=== PATIENT | male | born 1940 | race Caucasian/White ===

== ENCOUNTER 2023-01-18 01:06 | Emergency (ER) | payer MEDICARE, BC, SELFPAY ==
[2023-01-18 01:17] VITALS: BP 206/102; PULSE 70; RESP 18; TEMP 36.8; O2SAT 99; BMI 21.9
--- NOTE | 2023-01-18 01:26 | ED_ITS ---
HPI - GI Bleed General: Chief complaint: GI Bleed Stated complaint: rectal bleeding Time Seen by Provider: 01/18/23 01:07 Source: patient Mode of arrival: ambulatory Limitations: no limitations History of Present Illness: 82-year-old male states he has a history of hemorrhoids states that over the last day he has been having bright red blood in his stools. He had seen his primary care doctor today had blood work and they are getting set up with Dr. Gr for likely colonoscopy he states that this evening went to the bathroom he had had 1 of a bloody bowel movement with bright red blood in the stool denies any clots he has no weakness no lightheadedness Associated symptoms: Denies abdominal pain, chills, fever(s), headache(s), nausea, rash or vomiting Review of Systems Const: Denies: fever(s), chills, body aches or change in appetite ENMT: Denies: throat pain or dental pain Card: Denies: chest pain Resp: Denies: dyspnea GI: Reports: hematochezia; Denies: abdominal pain, nausea, vomiting or diarrhea Musc: Denies: neck pain or back pain Skin/Breast: Denies: rash Neuro: Denies: headache(s) Physical Exam Const: COMMON NORMALS: no acute distress, patient oriented x3 and healthy appearing HENMT: COMMON NORMALS: normocephalic and atraumatic HEAD & SCALP: normocephalic and atraumatic Eye: COMMON NORMALS: conjunctivae normal CONJUNCTIVA: Yes conjunctivae normal Neck/C-Spine: COMMON NORMALS: full ROM and supple Chest: COMMONS NORMALS: normal inspection of the chest Resp: COMMON NORMALS: normal respiratory effort and No use of accessory muscles Cardio: COMMON NORMALS: regular rate, regular rhythm and No murmurs present (Cardio) RATE: regular rate RHYTHM: regular rhythm GI: COMMON NORMALS: Normal to inspection, nondistended, normoactive bowel sounds present, Soft to palpation, non-tender and no masses PALPATION: Yes Soft to palpation OTHER: Rectal exam does show a hemorrhoid he has no blood at this time Hemoccult is negative Extremity: COMMON NORMALS: normal to inspection and full ROM Neuro: COMMON NORMALS: patient oriented x3, moves all extremities and no focal motor deficits Psych: COMMON NORMALS: mental status grossly normal, Normal thought process present and cooperative THOUGHT PROCESS: Normal thought process present Skin: COMMON NORMALS: no rashes or lesions noted and no wounds GENERAL SKIN EXAM: no rashes or lesions noted Course Vital Signs: Vital signs: Vital Signs Temperature 98.3 F 01/18/23 01:17 Pulse Rate 70 01/18/23 01:17 Respiratory Rate 18 01/18/23 01:17 Blood Pressure 206/102 01/18/23 01:17 Pulse Oximetry 99 01/18/23 01:17 Oxygen Delivery Me thod Room Air 01/18/23 01:17 MDM - GI Bleed Medical Decision Making Patient presents here with lower GI bleed rectal exam here currently showed no bleeding his hemoglobin is normal he has no signs of large amount of bleeding and is stable for discharge she is to follow-up with Dr. Gr is his primary is recommended for likely colonoscopy return if worsening. Lab Data 01/18/23 01:28 01/18/23 01:28 Laboratory Results WBC 7.54 10^3/uL (3.29-11.43) 01/18/23 01:28 RBC 4.59 10^6/uL (3.85-5.65) 01/18/23 01:28 Hgb 14.30 g/dL (11.27-16.99) 01/18/23 01:28 Hct 44.4 % (37-53) 01/18/23 01:28 MCV 96.7 fl (82-101) 01/18/23 01:28 MCH 31.2 pg (27-33) 01/18/23 01:28 MCHC 32.2 g/dL (30-55) 01/18/23 01:28 RDW 12.6 % (12.1-15.1) 01/18/23 01:28 Plt Count 134 10^3/cmm (157-399) L 01/18/23 01:28 MPV 11.3 fL (7.4-10.4) H 01/18/23 01:28 Neut % (Auto) 55.4 % 01/18/23 01:28 Lymph % (Auto) 30.2 % 01/18/23 01:28 [place] % (Auto) 12.6 % 01/18/23 01:28 Eos % (Auto) 0.8 % 01/18/23 01:28 Baso % (Auto) 0.7 % 01/18/23 01:28 Neut # (Auto) 4.18 10^3/uL (1.8-7.7) 01/18/23 01:28 Lymph # (Auto) 2.3 10^3/uL (0.8-4.8) 01/18/23 01:28 [place] # (Auto) 1.0 10^3/uL (0.2-0.9) H 01/18/23 01:28 Eos # (Auto) 0.1 10^3/uL (0.0-0.8) 01/18/23 01:28 Baso # (Auto) 0.1 10^3/uL (0.0-0.1) 01/18/23 01:28 Nucleated RBC % (auto) 0 % 01/18/23 01:28 Nucleated RBCs # 0.0 /100WBC 01/18/23 01:28 PT 13.80 SECONDS (12.1-14.9) 01/18/23 01:28 INR 1.03 (0.8-1.2) 01/18/23 01:28 Sodium 138 mmol/L (136-145) 01/18/23 01:28 Potassium 4.0 mmol/L (3.5-5.1) 01/18/23 01:28 Chloride 102 mmol/L (98-107) 01/18/23 01:28 Carbon Dioxide 27 mmol/L (22-29) 01/18/23 01:28 Anion Gap 13.0 (5-19) 01/18/23 01:28 BUN 18 mg/dL (8-23) 01/18/23 01:28 Creatinine 0.9 mg/dL (0.7-1.2) 01/18/23 01:28 GFR Calculation Not Reportable 01/18/23 01:28 Glucose 100 mg/dL (65-115) 01/18/23 01:28 Calculated Osmolality 288 mOsm/kg (285-295) 01/18/23 01:28 Calcium 9.3 mg/dL (8.5-10.5) 01/18/23 01:28 Total Bilirubin 0.4 mg/dL (0.15-1.2) 01/18/23 01:28 AST 25 U/L (0-40) 01/18/23 01:28 ALT 17 U/L (0-41) 01/18/23 01:28 Alkaline Phosphatase 123 U/L (40-130) 01/18/23 01:28 Total Protein 7.3 g/dL (6.6-8.7) 01/18/23 01:28 Albumin 4.0 g/dL (3.5-5.2) 01/18/23 01:28 Globulin 3.3 g/dL (1.3-4.6) 01/18/23 01:28 No radiology studies performed this visit Discharge Plan Discharge Patient Disposition: Home Clinical Impression: Acute lower GI bleeding Condition: Stable Discharge Orders: Discharge ED (Routine); Ordered 01/18/23 Ordered By: Kalie Solano Referrals: José Antonio Gr MD [Physician] - 1-3 days Michele Strange MD [Primary Care Provider] - Discharge Diet: Advance as tolerated Discharge Activity: Resume usual activity Patient Instructions: Rectal Bleeding (ED) Coding Level of Care Code ED 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
[2023-01-18 01:36] LABS: Basophils # 0.1 10^3/uL (0.0-0.1); Basophils % 0.7 %; Eosinophils # 0.1 10^3/uL (0.0-0.8); Eosinophils % 0.8 %; Hematocrit 44.4 % (37-53); Lymphocytes # 2.3 10^3/uL (0.8-4.8); Lymphocytes % 30.2 %; Mean Corpuscular HGB Conc 32.2 g/dL (30-55); Mean Corpuscular Hemoglobin 31.2 pg (27-33); Mean Corpuscular Volume 96.7 fl (82-101); Mean Platelet Volume 11.3 fL (7.4-10.4); Monocytes % 12.6 %; Neutrophils # 4.18 10^3/uL (1.8-7.7); Neutrophils % 55.4 %; Nucleated Red Blood Cells % 0 %; Platelet Count 134 10^3/cmm (157-399); Red Blood Count 4.59 10^6/uL (3.85-5.65); Red Cell Distribution Width 12.6 % (12.1-15.1); White Blood Count 7.54 10^3/uL (3.29-11.43)
[2023-01-18 01:46] LABS: INR 1.03 (0.8-1.2)
[2023-01-18 01:56] LABS: Alanine Aminotransferase 17 U/L (0-41); Alkaline Phosphatase 123 U/L (40-130); Aspartate Amino Transferase 25 U/L (0-40); Blood Urea Nitrogen 18 mg/dL (8-23); Calcium 9.3 mg/dL (8.5-10.5); Carbon Dioxide 27 mmol/L (22-29); Chloride 102 mmol/L (98-107); Globulin 3.3 g/dL (1.3-4.6); Glucose 100 mg/dL (65-115); Osmolality Calculated 288 mOsm/kg (285-295); Sodium 138 mmol/L (136-145); Total Bilirubin 0.4 mg/dL (0.15-1.2); Total Protein 7.3 g/dL (6.6-8.7)
[2023-01-18 02:06] VITALS: BP 153/78; PULSE 88; RESP 18; O2SAT 96
== END 2023-01-18 02:16 | disposition home or self-care (01) ==
PROVIDERS: Emergency Provider Emergency Medicine; PCP Family Medicine
DX: K92.2 Gastrointestinal hemorrhage, unspecified (principal)
CPT/HCPCS: 80053; 85025; 85610; 86850; 86900; 99283

== ENCOUNTER 2024-02-12 19:45 | Emergency (ER) | payer MEDICARE, BC, SELFPAY ==
[2024-02-12 19:56] VITALS: BP 187/82; PULSE 70; RESP 16; TEMP 36.9; O2SAT 96; BMI 22.5
--- NOTE | 2024-02-12 20:16 | W.ED.WOUNDLC ---
HPI - Wound/Laceration General: Chief Complaint: Wound/Laceration Stated Complaint: left arm lac Time Seen by Provider: 02/12/24 19:46 Source: patient Mode of arrival: ambulatory Limitations: no limitations History of Present Illness: 83-year-old male states that he had had a tree limb hit him in the left forearm on Monday he states that he has a skin tear to his left forearm and just wanted to get it checked out to make sure is healing well denies any bleeding denies any fever denies any increased pain. Unsure when his last tetanus was. Associated symptoms: Denies chills, fever(s), nausea or vomiting Related Data Allergies Allergy/AdvReac Type Severity Reaction Status Date / Time No Known Allergies Allergy Verified 01/18/23 01:25 Review of Systems Const: Denies: fever(s), chills, body aches or change in appetite ENMT: Denies: throat pain or dental pain Card: Denies: chest pain Resp: Denies: dyspnea GI: Denies: abdominal pain, nausea, vomiting or diarrhea Musc: Denies: neck pain or back pain Skin/Breast: Denies: rash Neuro: Denies: headache(s) Physical Exam Const: COMMON NORMALS: no acute distress, patient oriented x3 and healthy appearing HENMT: COMMON NORMALS: normocephalic and atraumatic HEAD & SCALP: normocephalic and atraumatic Eye: COMMON NORMALS: conjunctivae normal CONJUNCTIVA: Yes conjunctivae normal Neck/C-Spine: COMMON NORMALS: full ROM and supple Chest: COMMONS NORMALS: normal inspection of the chest Resp: COMMON NORMALS: normal respiratory effort Cardio: COMMON NORMALS: regular rate RATE: regular rate Extremity: COMMON NORMALS: full ROM Neuro: COMMON NORMALS: patient oriented x3, moves all extremities and no focal motor deficits Psych: COMMON NORMALS: mental status grossly normal, Normal thought process present and cooperative THOUGHT PROCESS: Normal thought process present Skin: COMMON NORMALS: no rashes or lesions noted NARRATIVE SKIN EXAM: Roughly 4 cm x 2 cm superficial skin tear to left forearm no bleeding no cellulitis GENERAL SKIN EXAM: no rashes or lesions noted Course Vital Signs: Vital signs: Vital Signs Temperature 98.4 F 02/12/24 19:56 Pulse Rate 70 02/12/24 19:56 Respiratory Rate 16 02/12/24 19:56 Blood Pressure 187/82 02/12/24 19:56 Pulse Oximetry 96 02/12/24 19:56 Oxygen Delivery Me thod Room Air 02/12/24 19:56 MDM - Wound/Laceration Medical Decision Making Patient presents here with skin tear to left forearm it is well-appearing here superficial no bleeding no signs of infection he is continue to keep the area clean follow-up with PCP return if worsening he understands agrees to plan Medical Records I reviewed the patient's medical records. No radiology studies performed this visit Discharge Plan Discharge Patient Disposition: Home Clinical Impression: Skin tear Condition: Stable Discharge Orders: Discharge ED (Routine); Ordered 02/12/24 Ordered By: Kalie Solano Referrals: Michele Strange MD [Primary Care Provider] - 4-7 days Patient Instructions: Skin Tear (ED) Coding Level of Care Code ED Phytochemistry Professor for Shun Mcdaniel
[2024-02-12] MEDS: tetanus-dipt-pertussis 0.5 mL SDV IM (20:23)
[2024-02-12] MEDS: bacitracin ointment Pkt 1 EACH TOPICAL (20:23)
[2024-02-12 20:38] VITALS: BP 184/89; PULSE 84; O2SAT 96
== END 2024-02-12 20:39 | disposition home or self-care (01) ==
PROVIDERS: Emergency Provider Emergency Medicine; PCP Family Medicine
DX: S51.812A Laceration without foreign body of left forearm, initial encounter (principal); W20.8XXA Other cause of strike by thrown, projected or falling object, initial encounter
CPT/HCPCS: 90471; 90715; 99283

== ENCOUNTER 2024-03-12 19:02 | Emergency (ER) | payer MEDICARE, BC, SELFPAY ==
[2024-03-12] VITALS (10 sets, daily range): BP systolic 131–184; BP diastolic 80–103; PULSE 59–66; RESP 16–18; TEMP 36.8; O2SAT 94–99
--- NOTE | 2024-03-12 19:26 | XRR_ITS ---
PROCEDURE INFORMATION: Exam: XR Chest Exam date and time: 03/12/2024 7:34 PM Age: 83 years old Clinical indication: Other: HTN; Additional info: Hypertension TECHNIQUE: Imaging protocol: Radiologic exam of the chest. Views: 1 view. COMPARISON: No relevant prior studies available. FINDINGS: Lungs: Unremarkable. No consolidation. Pleural spaces: Unremarkable. No pleural effusion. No pneumothorax. Heart/Mediastinum: Ectatic thoracic aorta with vascular calcification. No cardiomegaly. Bones/joints: Unremarkable. XR/XR chest 1V portable [id number] IMPRESSION: No acute findings.
--- NOTE | 2024-03-12 19:26 | CTR_ITS ---
PROCEDURE INFORMATION: Exam: CT Head Without Contrast Exam date and time: 03/12/2024 8:40 PM Age: 83 years old Clinical indication: Pain; Headache; Migraine; Aura effect not specified; Additional info: Hypertension, migraine, blurry vision, TECHNIQUE: Imaging protocol: Computed tomography of the head without contrast. Radiation optimization: All CT scans at this facility use at least one of these dose optimization techniques: automated exposure control; mA and/or kV adjustment per patient size (includes targeted exams where dose is matched to clinical indication); or iterative reconstruction. COMPARISON: US soft tissue head neck [id number] 03/25/2019 2:38 PM RADIATION DOSE METRICS: Total DLP (mGy-cm): 1115.18 FINDINGS: Brain: There is generalized atrophy. mild periventricular white matter low densities without mass effect compatible with chronic small vessel ischemic changes. No mass effect or midline shift. No hemorrhage. Low-density changes in the cheryl compatible with previous ischemic change. Cerebral ventricles: Prominence of the ventricles and cortical sulci. Paranasal sinuses: Visualized sinuses are unremarkable. No fluid levels. Mastoid air cells: Visualized mastoid air cells are well aerated. Bones: Unremarkable. No acute fracture. Soft tissues: Unremarkable. Vasculature: There are vascular atherosclerotic calcifications carotid siphons. Notes: If there is further clinical concern for intracranial pathology, MRI of the brain may be performed for further assessment. CT/CT head wo con* [id number] IMPRESSION: Genralized atrophy, No acute intracranial abnormality.
[2024-03-12 19:33] LABS: Glucose Point of Care 109 mg/dL (70-110)
[2024-03-12] MEDS: cloNIDine 0.1 mg Tablet PO ×2 (19:36→21:56)
--- NOTE | 2024-03-12 19:45 | W.ED.GENADLT ---
HPI - General Adult General: Chief complaint: General Medical Stated complaint: b/p high, not feeling good Time Seen by Provider: 03/12/24 19:20 History of Present Illness: Patient presents to the ER as a walk-in with complaints that he did not sleep good last night woke up this morning just not feeling quite right. Patient said he woke up for like he had a thick tongue he may have been slurring his words, has blurry vision, and high blood pressure. Patient is on no medicine of any kind. Patient has diagnosed himself with ocular migraines because he had the same symptoms in the past. Patient is never seen anyone specifically for these. Patient has no other focal neurologic deficits noted at this time. Patient's blood pressure upon arrival was 180/82. Related Data Allergies Allergy/AdvReac Type Severity Reaction Status Date / Time ciprofloxacin [From Cipro] Allergy Unknown Verified 03/12/24 19:13 lobster Allergy Unknown Verified 03/12/24 19:13 Review of Systems General: Reports: 10 or more systems reviewed and unremarkable except in HPI and below Physical Exam Const: COMMON NORMALS: no acute distress, average body habitus, patient oriented x3, no limitations, healthy appearing, alert and well nourished HENMT: COMMON NORMALS: normocephalic, atraumatic, hearing grossly normal bilaterally, external ears normal, Normal external nose present and moist oral mucous membranes HEAD & SCALP: normocephalic and atraumatic NOSE: Normal external nose present EXTERNAL EAR: Yes external ears normal Eye: COMMON NORMALS: Equal, round and reactive pupils present, EOMs intact bilaterally, conjunctivae normal and no scleral icterus CONJUNCTIVA: Yes conjunctivae normal PUPIL: Yes Equal, round and reactive pupils present Neck/C-Spine: COMMON NORMALS: full ROM, no lymphadenopathy, supple, no meningeal signs, no JVD and Thyroid normal THYROID: Thyroid normal Chest: COMMONS NORMALS: normal inspection of the chest and normal palpation of entire chest wall Resp: COMMON NORMALS: normal respiratory effort, No retractions, No use of accessory muscles and clear to auscultation bilaterally AUSCULTATION: clear to auscultation bilaterally Cardio: COMMON NORMALS: no JVD, regular rate, regular rhythm, S1 normal heart sound present, S2 normal heart sound present, No gallops present (Cardio), No clicks present (Cardio), No murmurs present (Cardio) and No rub (Cardio) RATE: regular rate RHYTHM: regular rhythm HEART SOUNDS: S1 normal heart sound present and S2 normal heart sound present GI: COMMON NORMALS: Normal to inspection, nondistended, normoactive bowel sounds present, Soft to palpation, non-tender, No hepatosplenomegaly present and no masses PALPATION: Yes Soft to palpation and Yes No hepatosplenomegaly present Neuro: COMMON NORMALS: patient oriented x3 SENSORIUM/ORIENTATION: Yes alert MENINGEAL SIGNS: Yes no meningeal signs Course Vital Signs: Vital signs: Vital Signs Temperature 98.2 F 03/12/24 19:05 Pulse Rate 63 03/12/24 20:13 Respiratory Rate 16 03/12/24 20:13 Blood Pressure 171/91 03/12/24 21:56 Pulse Oximetry 96 03/12/24 20:13 Oxygen Delivery Me thod Room Air 03/12/24 19:05 MDM - General Adult Medical Decision Making Patient had chest x-ray, head CT, lab work is all essentially remarkable, patient was given clonidine 0.2 mg total for blood pressure blood pressure eventually settled at 131/81. Patient will be discharged to follow-up with his PCP. Medical Records I reviewed the patient's medical records. Lab Data I reviewed the patient's lab results. 03/12/24 19:53 03/12/24 19:53 Radiology Impressions Chest X-Ray 03/12/24 19:26 IMPRESSION: No acute findings. Head CT 03/12/24 19:26 IMPRESSION: Genralized atrophy, No acute intracranial abnormality. Laboratory Results WBC 6.06 10^3/uL (3.29-11.43) 03/12/24 19:53 RBC 4.66 10^6/uL (3.85-5.65) 03/12/24 19:53 Hgb 14.50 g/dL (11.27-16.99) 03/12/24 19:53 Hct 44.0 % (37-53) 03/12/24 19:53 MCV 94.4 fl (82-101) 03/12/24 19:53 MCH 31.1 pg (27-33) 03/12/24 19:53 MCHC 33.0 g/dL (30-55) 03/12/24 19:53 RDW 12.8 % (12.1-15.1) 03/12/24 19:53 Plt Count 125 10^3/cmm (157-399) L 03/12/24 19:53 MPV 11.7 fL (7.4-10.4) H 03/12/24 19:53 Neut % (Auto) 62.1 % 03/12/24 19:53 Lymph % (Auto) 23.8 % 03/12/24 19:53 [place] % (Auto) 12.4 % 03/12/24 19:53 Eos % (Auto) 1.0 % 03/12/24 19:53 Baso % (Auto) 0.5 % 03/12/24 19:53 Neut # (Auto) 3.77 10^3/uL (1.8-7.7) 03/12/24 19:53 Lymph # (Auto) 1.4 10^3/uL (0.8-4.8) 03/12/24 19:53 [place] # (Auto) 0.8 10^3/uL (0.2-0.9) 03/12/24 19:53 Eos # (Auto) 0.1 10^3/uL (0.0-0.8) 03/12/24 19:53 Baso # (Auto) 0.0 10^3/uL (0.0-0.1) 03/12/24 19:53 Nucleated RBC % (auto) 0 % 03/12/24 19:53 Nucleated RBCs # 0.0 /100WBC 03/12/24 19:53 PT 13.20 SECONDS (12.1-14.9) 03/12/24 19:53 INR 0.97 (0.8-1.2) 03/12/24 19:53 Sodium 140 mmol/L (136-145) 03/12/24 19:53 Potassium 4.1 mmol/L (3.5-5.1) 03/12/24 19:53 Chloride 105 mmol/L (98-107) 03/12/24 19:53 Carbon Dioxide 25 mmol/L (22-29) 03/12/24 19:53 Anion Gap 14.1 (5-19) 03/12/24 19:53 BUN 15 mg/dL (8-23) 03/12/24 19:53 Creatinine 0.9 mg/dL (0.7-1.2) 03/12/24 19:53 GFR Calculation Not Reportable 03/12/24 19:53 Glucose 94 mg/dL (65-115) 03/12/24 19:53 POC Glucose 109 mg/dL (70-110) 03/12/24 19:29 Calculated Osmolality 291 mOsm/kg (285-295) 03/12/24 19:53 Calcium 9.2 mg/dL (8.5-10.5) 03/12/24 19:53 Magnesium 2.3 mg/dL (1.7-2.3) 03/12/24 19:53 Total Bilirubin 0.3 mg/dL (0.15-1.2) 03/12/24 19:53 AST 23 U/L (0-40) 03/12/24 19:53 ALT 17 U/L (0-41) 03/12/24 19:53 Alkaline Phosphatase 105 U/L (40-130) 03/12/24 19:53 Troponin T Baseline 13 ng/L (0-15) 03/12/24 19:53 Troponin T 120 Minute 11.36 ng/L (0-15) 03/12/24 21:40 Delta Troponin T -1.64 ABS# (0-10) L 03/12/24 21:40 C-Reactive Protein 3.0 mg/L (0.0-4.9) 03/12/24 19:53 Total Protein 7.4 g/dL (6.6-8.7) 03/12/24 19:53 Albumin 4.0 g/dL (3.5-5.2) 03/12/24 19:53 Globulin 3.4 g/dL (1.3-4.6) 03/12/24 19:53 TSH 1.99 uIU/mL (0.27-4.20) 03/12/24 19:53 Urine Color Yellow (Yellow) 03/12/24 20:30 Urine Appearance Clear (CLEAR) 03/12/24 20:30 Urine pH 7.0 (5-7) 03/12/24 20:30 Ur Specific [place] 1.009 (1.005-1.030) 03/12/24 20:30 Urine Protein Negative (Negative) 03/12/24 20:30 Urine Glucose (UA) Negative (Normal) 03/12/24 20:30 Urine Ketones Negative (Negative) 03/12/24 20:30 Urine Blood Negative (Negative) 03/12/24 20:30 Urine Nitrate Negative (Negative) 03/12/24 20:30 Urine Bilirubin Negative (Negative) 03/12/24 20:30 Urine Urobilinogen 0.2 mg/dL (Negative) 03/12/24 20:30 Ur Leukocyte Esterase Negative (Negative) 03/12/24 20:30 Urine RBC 0-2 /hpf (0-2) 03/12/24 20:30 Urine WBC 0-5 /hpf (0-5) 03/12/24 20:30 Ur Squamous Epith Cells 0-5 /hpf (0-5) 03/12/24 20:30 Amorphous Sediment Not Reportable 03/12/24 20:30 Urine Bacteria None seen /hpf (NONE) 03/12/24 20:30 Hyaline Casts 0-4 /lpf H 03/12/24 20:30 All radiology interpretation(s) finalized by discharge Discharge Plan Discharge Patient Disposition: Home Clinical Impression: Ocular migraine Hypertension Qualifiers: Hypertension type: unspecified Qualified Code(s): I10 - Essential (primary) hypertension Condition: Stable Discharge Orders: Discharge ED (Routine); Ordered 03/12/24 Ordered By: Miguel Angel Rodriguez Referrals: Michele Strange MD [Primary Care Provider] - 1 week Patient Instructions: Hypertension (ED), Ocular Migraine (ED) Activity Restrictions/Additional Instructions: Your evaluation ER that included physical exam, blood work, x-ray and CT scan all was essentially normal. You are given clonidine to lower your blood pressure. Please keep a blood pressure log for you take your blood pressure 2 or 3 times a day and please take it with you when you follow-up with your family practice doctor in the next 7 days for further evaluation and treatment. Coding Level of Care Code ED Global Marketing Operations Manager for Shun Mcdaniel
[2024-03-12 20:05] LABS: Basophils % 0.5 %; Eosinophils # 0.1 10^3/uL (0.0-0.8); Lymphocytes # 1.4 10^3/uL (0.8-4.8); Lymphocytes % 23.8 %; Mean Corpuscular Hemoglobin 31.1 pg (27-33); Mean Corpuscular Volume 94.4 fl (82-101); Mean Platelet Volume 11.7 fL (7.4-10.4); Monocytes # 0.8 10^3/uL (0.2-0.9); Monocytes % 12.4 %; Neutrophils # 3.77 10^3/uL (1.8-7.7); Neutrophils % 62.1 %; Nucleated Red Blood Cells % 0 %; Platelet Count 125 10^3/cmm (157-399); Red Blood Count 4.66 10^6/uL (3.85-5.65); Red Cell Distribution Width 12.8 % (12.1-15.1); White Blood Count 6.06 10^3/uL (3.29-11.43)
[2024-03-12 20:26] LABS: INR 0.97 (0.8-1.2)
[2024-03-12 20:43] LABS: Bilirubin Urine Negative (Negative); Blood Urine Negative (Negative); Glucose Urine UA Negative (Normal); Ketones Urine Negative (Negative); Leukocyte Esterase Urine Negative (Negative); Nitrate Urine Negative (Negative); Protein Urine Negative (Negative); Specific Gravity, Urine 1.009 (1.005-1.030); Urine Appearance Clear (CLEAR); Urine Color Yellow (Yellow); Urobilinogen Urine 0.2 mg/dL (Negative)
[2024-03-12 20:43] LABS: Alanine Aminotransferase 17 U/L (0-41); Alkaline Phosphatase 105 U/L (40-130); Anion Gap 14.1 (5-19); Aspartate Amino Transferase 23 U/L (0-40); Blood Urea Nitrogen 15 mg/dL (8-23); Calcium 9.2 mg/dL (8.5-10.5); Carbon Dioxide 25 mmol/L (22-29); Chloride 105 mmol/L (98-107); Creatinine Clr Calc Pharmacy 78.6881; Globulin 3.4 g/dL (1.3-4.6); Glucose 94 mg/dL (65-115); Magnesium 2.3 mg/dL (1.7-2.3); Osmolality Calculated 291 mOsm/kg (285-295); Potassium 4.1 mmol/L (3.5-5.1); Sodium 140 mmol/L (136-145); Thyroid Stimulating Hormone 1.99 uIU/mL (0.27-4.20); Total Bilirubin 0.3 mg/dL (0.15-1.2); Total Protein 7.4 g/dL (6.6-8.7)
[2024-03-12 20:45] LABS: Troponin(5th) Baseline 13 ng/L (0-15)
[2024-03-12 20:47] LABS: Add Urine Microscopic? YES; Bacteria Urine None Seen /hpf; Hyaline Casts Urine 0-4 /lpf; RBC Urine 0-2 /hpf (0-2); Squamous Epithelial Cell Urine 0-5 /hpf (0-5); WBC Urine 0-5 /hpf (0-5)
--- NOTE | 2024-03-12 21:26 | ECG_ITS ---
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 Measurements Intervals [place] Rate: 64 P: 68 MI: 118 QRS: 76 QRSD: 90 T: 3 QT: 395 QTc: 410 Interpretive Statements SINUS RHYTHM WITH SHORT MI INTERVAL No previous ECG available for comparison Electronically Signed On 03-13-2024 01:08:22 ASSOCIATE CREATIVE DIRECTOR by Bernie Yoon M.D. [email or web address]
[2024-03-12 22:09] LABS: Troponin 5 2HR 11.36 ng/L (0-15)
[2024-03-12 22:13] LABS: Troponin 5 2HR Delta -1.64 ABS# (0-10)
== END 2024-03-12 23:44 | disposition home or self-care (01) ==
PROVIDERS: Emergency Provider Emergency Medicine; PCP Family Medicine
DX: I10 Essential (primary) hypertension (principal)
CPT/HCPCS: 36415; 36416; 70450; 71045; 80053; 81001; 82962; 83735; 84443; 84484; 85025; 85610; 86140; 93005; 99285